=== PATIENT | female | born 1955 | race Caucasian/White ===

== ENCOUNTER 2021-05-12 17:56 | Observation (INO) | payer OTHER, MEDICARE ==
[2021-05-12 18:25] VITALS: BMI 29.9
[2021-05-12] MEDS ORDERED: Acetaminophen 325 MG TAB PO PRN (19:28)
[2021-05-12] MEDS ORDERED: Ondansetron ODT 4 MG TAB PO PRN (19:28)
[2021-05-12 20:00] LABS: #Eosinphils 0.2 10x3/uL (0.0-0.5); #Monocytes 0.5 10x3/uL (0.0-1.1); #Neutrophils 5.2 10x3/uL (1.5-8.4); %Basophils 0.1 % (0.0-2.0); %Lymphocytes 24.6 % (18.0-47.0); %Monocytes 6.4 % (0.0-10.0); %Neutrophils 65.5 % (40.0-75.0); Hemoglobin 12.7 g/dL (12.0-15.5); Mean Corpuscular HGB CONC 30.6 g/dL (32.0-36.0); Mean Corpuscular Hemoglobin 29.7 pg (27.0-33.0); Mean Corpuscular Volume 97.2 fl (81.6-98.3); Mean Platelet Volume 10.1 fl (7.4-10.4); Platelet Count 218 10x3/uL (150-450); RBC Distribution Width 14.7 % (11.5-14.5); Red Blood Cell (RBC) Count 4.27 10x6/uL (3.90-5.03)
[2021-05-12 20:07] LABS: Anion Gap 12 mmol/L (10-20); BUN (Urea Nitrogen) 8 mg/dL (9.8-20.1); Calc. Creatinine Clearance 93 mL/min (70-130); Calcium 8.5 mg/dL (7.8-10.44); Carbon Dioxide 20 mmol/L (23-31); Chloride 114 mmol/L (98-107); Glucose 122 mg/dL (80-115); Potassium 3.7 mmol/L (3.5-5.1); Sodium 142 mmol/L (136-145)
[2021-05-12] MEDS: Cefepime 1 GM in Sodium Chloride 0.9% 100 ML IVPB SCH (21:07)
[2021-05-12] MEDS: Lactated Ringer's 1,000 ML IV SCH (21:08)
[2021-05-13] MEDS ORDERED: Vancomycin 1.5 GRAM/300 ML BAG 1.5 GM in Premix Bag 1 BAG IVPB SCH (02:00)
[2021-05-13] MEDS ORDERED: Albuterol Sulfate 2.5 mg/3 ml Neb NEB SCH (04:30)
[2021-05-13 04:32] LABS: Anion Gap 11 mmol/L (10-20); BUN (Urea Nitrogen) 7 mg/dL (9.8-20.1); Calc. Creatinine Clearance 94 mL/min (70-130); Calcium 8.3 mg/dL (7.8-10.44); Carbon Dioxide 20 mmol/L (23-31); Chloride 113 mmol/L (98-107); Glucose 172 mg/dL (80-115); Potassium 3.7 mmol/L (3.5-5.1); Sodium 140 mmol/L (136-145)
[2021-05-13 04:38] LABS: #Eosinphils 0.3 10x3/uL (0.0-0.5); #Monocytes 0.6 10x3/uL (0.0-1.1); #Neutrophils 3.8 10x3/uL (1.5-8.4); %Basophils 0.1 % (0.0-2.0); %Eosinophils 4.3 % (0.0-6.0); %Lymphocytes 31.2 % (18.0-47.0); %Monocytes 8.1 % (0.0-10.0); %Neutrophils 55.9 % (40.0-75.0); Hemoglobin 11.8 g/dL (12.0-15.5); Mean Corpuscular HGB CONC 31.8 g/dL (32.0-36.0); Mean Corpuscular Hemoglobin 30.1 pg (27.0-33.0); Mean Corpuscular Volume 94.6 fl (81.6-98.3); Mean Platelet Volume 10.5 fl (7.4-10.4); Platelet Count 235 10x3/uL (150-450); RBC Distribution Width 14.6 % (11.5-14.5); Red Blood Cell (RBC) Count 3.92 10x6/uL (3.90-5.03); White Blood Cell (WBC) Count 6.8 10x3/uL (3.5-10.5)
[2021-05-13] MEDS ORDERED: Enoxaparin Sodium 40 MG/0.4 ML SYRINGE SC SCH (09:00)
[2021-05-13] MEDS: Cefepime 1 GM in Sodium Chloride 0.9% 100 ML IVPB SCH (09:52)
[2021-05-13] MEDS: Albuterol Sulfate 2.5 mg/3 ml Neb NEB SCH ×3 (11:17→17:54)
[2021-05-13] MEDS: Lactated Ringer's 1,000 ML IV SCH ×2 (12:55→13:33)
[2021-05-13] MEDS ORDERED: Insulin Regular 300 UNITS/3 ML VIAL SC PRN (13:25)
[2021-05-13] MEDS ORDERED: Dextrose 50% Abboject 50 ML SYRINGE SLOW IVP PRN (13:25)
[2021-05-13] MEDS ORDERED: Dextrose 5% in Water 1,000 ML IV PRN (13:25)
[2021-05-13] MEDS ORDERED: HumaLOG 300 UNITS/3 ML VIAL SC PRN (13:25)
[2021-05-13] MEDS ORDERED: Varenicline Tartrate 0.5 MG TAB PO SCH (16:30)
[2021-05-13 21:08] VITALS: BP 116/66; TEMP 98.2
[2021-05-14] MEDS ORDERED: PIOGLITAZONE HCL 30 MG PO SCH (09:00)
== END 2021-05-13 20:00 | disposition home or self-care (01) ==
LOC: INTOOBSV 17:56 → CSHTELE 17:56
PROVIDERS: ADMIT Hospitalist; ATTEND Hospitalist
DX: R10.9 Unspecified abdominal pain (principal); R19.7 Diarrhea, unspecified; E87.2 Acidosis; D72.829 Elevated white blood cell count, unspecified; I10 Essential (primary) hypertension
CPT/HCPCS: 36415; 36416; 80048; 82274; 83630; 85025; 87328; 87329; 94640; 96372; 96374; 96375; 96376; G0378; J0692; J1650; J3370; J3490; J7120; J7611